=== PATIENT | female | born 1975 | race Asian ===

== ENCOUNTER → 2016-10-20 | Outpatient (CLI) | payer OTHER | LOC: MW.CHIM 08:34 | PROVIDERS: ATTEND Internal Medicine | DX: E05.00 Thyrotoxicosis with diffuse goiter without thyrotoxic crisis or storm (principal) | CPT/HCPCS: 36415; 83520; 84439; 84443; 86376; 86800 ==

== ENCOUNTER → 2016-11-14 | Outpatient (CLI) | payer OTHER | LOC: MW.CHFP 08:49 | PROVIDERS: ATTEND Nurse Practitioner Family | DX: R76.11 Nonspecific reaction to tuberculin skin test without active tuberculosis (principal) | CPT/HCPCS: 36415; 84450; 84460 ==